=== PATIENT | male | born 2000 | race Caucasian/White ===

== ENCOUNTER 2023-11-22 07:11 | Emergency (ER) | payer BC, SELFPAY ==
--- NOTE | 2023-11-22 07:10 | ECG_ITS ---
[facility] Test Date: 2023-11-22 Pat Name: Ga Landaverde Department: Room: Gender: Male Faculty I On Call Medical Assistant: : 2000 Requested By: Clinton Wu Order Number: [id number] Ced MD: Yohannes Manriquez M.D. Measurements Intervals [place] Rate: 62 P: 54 HI: 131 QRS: 72 QRSD: 89 T: 24 QT: 359 QTc: 367 Interpretive Statements SINUS RHYTHM No previous ECG available for comparison Electronically Signed On 11-22-2023 16:54:30 CDT by Yohannes Manriquez M.D. [id number]
[2023-11-22 07:14] VITALS: BP 142/86; PULSE 61; RESP 16; TEMP 36.6; O2SAT 96; BMI 25.1
[2023-11-22 07:23] VITALS: BP 142/84; PULSE 62; RESP 16; O2SAT 91
--- NOTE | 2023-11-22 07:27 | XRR_ITS ---
PROCEDURE INFORMATION: Exam: XR Chest Exam date and time: 11/22/2023 7:32 AM Age: 23 years old Clinical indication: Pain; Chest pressure; Additional info: Dyspnea/cough TECHNIQUE: Imaging protocol: Radiologic exam of the chest. Views: 1 view. COMPARISON: No relevant prior studies available. FINDINGS: Lungs: Unremarkable. No consolidation. Pleural spaces: Unremarkable. No pleural effusion. No pneumothorax. Heart/Mediastinum: Unremarkable. No cardiomegaly. Bones/joints: Unremarkable. XR/XR chest 1V portable [id number] IMPRESSION: No acute findings.
--- NOTE | 2023-11-22 07:35 | ED_ITS ---
HPI - Chest Pain 2 General: Chief Complaint: Chest Pain Stated Complaint: CP Time Seen by Provider: 11/22/23 07:17 History of Present Illness: 23-year-old male presents emergency room with complaint of chest discomfort. He had his had at quite often recently here yesterday was working and woke up with it this morning it was worse when he tries to sit up for chest x-ray calzone is anything else that exacerbates or relieves it. Earlier this year in August he had an echocardiogram in September he had a Holter monitor. Reviewing the notes was concerned that he may have some anxiety reactions for involved with this. He has no family history of early cardiac disease. He has no known history of any arrhythmias. The Holter and echo were done at outside facilities are not available at this time Associated symptoms: Deny abdominal pain, dyspnea or fever(s) Related Data Previous Rx's Medication Instructions Recorded escitalopram oxalate 10 mg tablet 10 mg PO DAILY #60 tabs 10/19/23 (Lexapro) diclofenac sodium 75 mg 75 mg PO Q12H PRN pain #20 tabs 11/22/23 tablet,delayed release Allergies Allergy/AdvReac Type Severity Reaction Status Date / Time No Known Allergies Allergy Verified 10/19/23 10:04 Review of Systems 2 Const: Denies: fever(s) or chills Card: Denies: chest pain Resp: Denies: dyspnea GI: Denies: abdominal pain : Denies: dysuria, urinary frequency or urinary urgency Musc: Denies: neck pain or back pain Skin/Breast: Denies: rash PFSH ED 2 PFSH: Social History Smoking and tobacco/nicotine status: never used tobacco/nicotine Physical Exam 2 Const: COMMON NORMALS: no acute distress GENERAL APPEARANCE: cooperative and comfortable ORIENTATION/CONSCIOUSNESS: Yes awake, Yes oriented to person, Yes oriented to place and Yes oriented to time HENMT: COMMON NORMALS: normocephalic, atraumatic and hearing grossly normal bilaterally HEAD & SCALP: normocephalic and atraumatic Resp: COMMON NORMALS: normal respiratory effort, No retractions, No use of accessory muscles and clear to auscultation bilaterally AUSCULTATION: clear to auscultation bilaterally Cardio: COMMON NORMALS: regular rate, regular rhythm and No murmurs present (Cardio) RATE: regular rate RHYTHM: regular rhythm GI: COMMON NORMALS: Soft to palpation and No hepatosplenomegaly present A USCULTATION: Yes normoactive bowel sounds PALPATION: Yes Soft to palpation, No Tenderness to palpation present (GI), No Guarding due to palpation present (GI) and Yes No hepatosplenomegaly present Extremity: COMMON NORMALS: normal to inspection, capillary refill normal, no clubbing, cyanosis or edema, no calf tenderness and no pedal edema Neuro: SENSORIUM/ORIENTATION: Yes oriented to person, Yes oriented to place and Yes oriented to time Skin: COMMON NORMALS: no rashes or lesions noted GENERAL SKIN EXAM: no rashes or lesions noted Course 2 Vital Signs: Vital signs: Vital Signs Temperature 97.9 F 11/22/23 07:14 Pulse Rate 66 11/22/23 10:49 Respiratory Rate 16 11/22/23 09:24 Blood Pressure 126/72 11/22/23 10:49 Pulse Oximetry 96 11/22/23 10:49 Oxygen Delivery Me thod Room Air 11/22/23 09:24 MDM - Chest Pain Medical Decision Making Pain is reproducible with movement and somewhat with palpation when he flexes to sit up in bed he can reduce pain reliably. Chest x-ray normal sats are normal he is not having any further chest pain has not been tachycardic and there is any sign of acute pulmonary embolism. No pneumothorax or pneumonia on chest x- ray. EKG does not show any sign of acute coronary syndrome. Discharge home with anti-inflammatories follow-up primary care Medical Records I reviewed the patient's medical records. Lab Data I reviewed the patient's lab results. 11/22/23 07:43 11/22/23 07:43 Radiology Impressions Chest X-Ray 11/22/23 07:27 IMPRESSION: No acute findings. Laboratory Results WBC 6.26 10^3/uL (3.29-11.43) 11/22/23 07:43 RBC 5.25 10^6/uL (3.85-5.65) 11/22/23 07:43 Hgb 15.50 g/dL (11.27-16.99) 11/22/23 07:43 Hct 45.9 % (37-53) 11/22/23 07:43 MCV 87.4 fl (82-101) 11/22/23 07:43 MCH 29.5 pg (27-33) 11/22/23 07:43 MCHC 33.8 g/dL (30-55) 11/22/23 07:43 RDW 12.6 % (12.1-15.1) 11/22/23 07:43 Plt Count 174 10^3/cmm (157-399) 11/22/23 07:43 MPV 11.3 fL (7.4-10.4) H 11/22/23 07:43 Neut % (Auto) 68.0 % 11/22/23 07:43 Lymph % (Auto) 23.2 % 11/22/23 07:43 [place] % (Auto) 7.0 % 11/22/23 07:43 Eos % (Auto) 1.1 % 11/22/23 07:43 Baso % (Auto) 0.5 % 11/22/23 07:43 Neut # (Auto) 4.26 10^3/uL (1.8-7.7) 11/22/23 07:43 Lymph # (Auto) 1.5 10^3/uL (0.8-4.8) 11/22/23 07:43 [place] # (Auto) 0.4 10^3/uL (0.2-0.9) 11/22/23 07:43 Eos # (Auto) 0.1 10^3/uL (0.0-0.8) 11/22/23 07:43 Baso # (Auto) 0.0 10^3/uL (0.0-0.1) 11/22/23 07:43 Nucleated RBC % (auto) 0 % 11/22/23 07:43 Nucleated RBCs # 0.0 /100WBC 11/22/23 07:43 Sodium 137 mmol/L (136-145) 11/22/23 07:43 Potassium 4.2 mmol/L (3.5-5.1) 11/22/23 07:43 Chloride 101 mmol/L (98-107) 11/22/23 07:43 Carbon Dioxide 25 mmol/L (22-29) 11/22/23 07:43 Anion Gap 15.2 (5-19) 11/22/23 07:43 BUN 13 mg/dL (6-20) 11/22/23 07:43 Creatinine 0.8 mg/dL (0.7-1.2) 11/22/23 07:43 GFR Calculation 119.8 mL/min (90-130) 11/22/23 07:43 Glucose 99 mg/dL (65-115) 11/22/23 07:43 Calculated Osmolality 284 mOsm/kg (285-295) L 11/22/23 07:43 Calcium 9.2 mg/dL (8.5-10.5) 11/22/23 07:43 Total Bilirubin 0.5 mg/dL (0.15-1.2) 11/22/23 07:43 AST 23 U/L (0-40) 11/22/23 07:43 ALT 17 U/L (0-41) 11/22/23 07:43 Alkaline Phosphatase 56 U/L (40-130) 11/22/23 07:43 Troponin T Baseline < 6 ng/L (0-15) 11/22/23 07:43 Troponin T 120 Minute 6.00 ng/L (0-15) 11/22/23 09:19 Delta Troponin T 0.29029 ABS# (0-10) 11/22/23 09:19 Total Protein 7.2 g/dL (6.6-8.7) 11/22/23 07:43 Albumin 4.8 g/dL (3.5-5.2) 11/22/23 07:43 Globulin 2.4 g/dL (1.3-4.6) 11/22/23 07:43 All radiology interpretation(s) finalized by discharge Discharge Plan Discharge Patient Disposition: Home Clinical Impression: Atypical chest pain Condition: Stable Prescriptions: New diclofenac sodium 75 mg tablet,delayed release (DR/EC) 75 mg PO Q12H PRN (Reason: pain) Qty: 20 0RF Discontinued naproxen 500 mg tablet 500 mg PO bid PRN (Reason: pain) Qty: 30 1RF No Action escitalopram oxalate [Lexapro] 10 mg tablet 10 mg PO DAILY Qty: 60 0RF Discharge Orders: Discharge ED (Routine); Ordered 11/22/23 Ordered By: Clinton Swann Referrals: Donal Portillo MD [Primary Care Provider] - Discharge Diet: Usual diet Discharge Activity: Increase activity as tolerated Patient Instructions: Opioid Safety, Pain Management Activity Restrictions/Additional Instructions: Thank you for choosing [facility] for your healthcare needs today. It is very important that you follow up as instructed or that you return to the Emergency Department should you have concerns or if your condition changes or worsens in any way. You are seen today with complaints of chest discomfort. Cardiac enzymes and EKG were normal and chest discomfort by its description and history sounds more consistent with a musculoskeletal issue. Follow-up with primary care doctor as needed you can use diclofenac as needed. Coding Level of Care Code ED Java Project Manager for Davin Han
[2023-11-22 07:49] LABS: Basophils % 0.5 %; Eosinophils # 0.1 10^3/uL (0.0-0.8); Eosinophils % 1.1 %; Hematocrit 45.9 % (37-53); Lymphocytes # 1.5 10^3/uL (0.8-4.8); Lymphocytes % 23.2 %; Mean Corpuscular HGB Conc 33.8 g/dL (30-55); Mean Corpuscular Hemoglobin 29.5 pg (27-33); Mean Corpuscular Volume 87.4 fl (82-101); Mean Platelet Volume 11.3 fL (7.4-10.4); Monocytes # 0.4 10^3/uL (0.2-0.9); Neutrophils # 4.26 10^3/uL (1.8-7.7); Nucleated Red Blood Cells % 0 %; Platelet Count 174 10^3/cmm (157-399); Red Blood Count 5.25 10^6/uL (3.85-5.65); Red Cell Distribution Width 12.6 % (12.1-15.1); White Blood Count 6.26 10^3/uL (3.29-11.43)
[2023-11-22 08:08] LABS: Troponin(5th) Baseline < 6 ng/L (0-15)
[2023-11-22 08:11] LABS: Alanine Aminotransferase 17 U/L (0-41); Albumin Level 4.8 g/dL (3.5-5.2); Alkaline Phosphatase 56 U/L (40-130); Anion Gap 15.2 (5-19); Aspartate Amino Transferase 23 U/L (0-40); Blood Urea Nitrogen 13 mg/dL (6-20); Calcium 9.2 mg/dL (8.5-10.5); Carbon Dioxide 25 mmol/L (22-29); Chloride 101 mmol/L (98-107); Creatinine Clr Calc Pharmacy 158.1101; Globulin 2.4 g/dL (1.3-4.6); Glomerular Filtration Rate 119.8 mL/min (90-130); Glucose 99 mg/dL (65-115); Osmolality Calculated 284 mOsm/kg (285-295); Potassium 4.2 mmol/L (3.5-5.1); Sodium 137 mmol/L (136-145); Total Bilirubin 0.5 mg/dL (0.15-1.2); Total Protein 7.2 g/dL (6.6-8.7)
[2023-11-22 08:21] VITALS: BP 101/83; PULSE 67; RESP 16; O2SAT 96
[2023-11-22 08:54] VITALS: BP 101/83; PULSE 65; RESP 16; O2SAT 97
[2023-11-22 09:24] VITALS: BP 134/82; PULSE 71; RESP 16; O2SAT 98
--- NOTE | 2023-11-22 09:27 | ECG_ITS ---
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 Measurements Intervals [place] Rate: 62 P: 54 NM: 124 QRS: 64 QRSD: 106 T: 22 QT: 347 QTc: 354 Interpretive Statements SINUS RHYTHM Compared to ECG 11/22/2023 07:10:53 No significant changes Electronically Signed On 11-22-2023 16:56:37 CDT by Yohannes Manriquez M.D. [id number]
[2023-11-22 10:14] LABS: Troponin 5 2HR Delta 0.00001 ABS# (0-10)
[2023-11-22 10:49] VITALS: BP 126/72; PULSE 66; O2SAT 96
== END 2023-11-22 10:50 | disposition home or self-care (01) ==
PROVIDERS: Emergency Provider Family Medicine; PCP Family Medicine
DX: R07.89 Other chest pain (principal)
CPT/HCPCS: 36415; 71045; 80053; 84484; 85025; 93005; 99285

== ENCOUNTER → 2024-03-02 16:19 | Outpatient (BNVA) | payer BC, SELFPAY | PROVIDERS: PCP Family Medicine; Visit Provider Nurse Practitioner | DX: F41.8 Other specified anxiety disorders (principal) | CPT/HCPCS: 80053; 80061; 84443; 85025 ==